=== PATIENT | male | born 1940 | race Caucasian/White ===

== ENCOUNTER 2017-08-27 07:00 | Day surgery (SDC) | payer OTHER, SELFPAY ==
[2017-08-27] VITALS (8 sets, daily range): BP systolic 102–131; BP diastolic 66–74; PULSE 41–54; RESP 12–16; TEMP 35.8–36.3; O2SAT 92–99; BMI 24.5
--- NOTE | 2017-08-27 | PATH_ITS ---
[facility] Accession Number: [id number] . 01 Material submitted: . PREPYLORIC . 01 Clinical history: . LESION . 02 Diagnosis: Stomach, Prepyloric, Biopsy: Gastric antral mucosa with reactive gastropathy. No evidence of Helicobacter organisms on H/E stain. Negative for intestinal metaplasia, dysplasia or malignancy. [facility]/08/30/2017 . 02 Electronically signed: . Clyde Abad MD, PhD, Pathologist NPI- [id number] . 01 Gross description: . One specimen is received in formalin, labeled [place]hertz, Santi and prepyloric lesion biopsies, and consists of multiple cheng tissue fragments, 0.1-0.2 cm and 1.0 x 0.5 x 0.1 cm in aggregate. The specimen is submitted in toto in cassette A1. (DARREN:[id number]) /FRR . 02 Pathologist provided ICD-10: R10.13 . 02 CPT . 924137 Performed at: 01 [facility] [address] [facility], [place], [place] [id number] MD Sylvester Flores MD Phone: [phone] Performed at: 02 [facility] [address] [place], [place] [id number] MD Willy Azar MD Phone: [phone]
[2017-08-27] MEDS: SODIUM CHLORIDE 0.9% 1,000 ML 200 ML IV (07:30)
--- NOTE | 2017-08-27 07:57 | PM.HP.1 ---
History of Present Illness Date Patient Seen: 08/27/17 Time Patient Seen: 07:57 Chief complaint: [address]133 EGD W/PROBABLE SCHATZKI RING FOR DILATATION Narrative: Patient is a gentleman with a known Schatzki ring. He has complete does move it till it he of his esophagus and had a neuro problems swallowing with myasthenia gravis. I am and doing an endoscopy on him today to see if there is any fixable problem that might improve his swallowing is he is having dysphagia of solids. Patient History Medical History Benign prostatic hyperplasia (Chronic) Chronic back pain (Chronic) Essential hypertension (Chronic) Hypothyroidism (acquired) (Chronic) Surgical History History of bilateral inguinal hernia repair (Resolved) Family & Social History Social History: household members spouse Meds Allergies Allergy/AdvReac Type Severity Reaction Status Date / Time CARROTS Allergy Unknown ITCHY EYES Uncoded 06/02/17 12:30 MONOSODIUM GLUTAMATE Allergy Unknown HEADACHES Uncoded 06/02/17 12:30 Review of Systems Review of Systems All systems reviewed & are unremarkable except as noted in HPI and below Gastrointestinal Comments: Dysphagia of solids Exam Vital Signs (past 8 hours): - 08/27/17 07:21 Temperature 96.5 F L Pulse Rate 45 L Respiratory Rate 16 Blood Pressure 131/70 H Pulse Oximetry 99 Oxygen Delivery Method Room Air Narrative Exam Narrative: No apparent distress. Lungs are clear to auscultation no rales or rhonchi. heart regular rate and rhythm no murmur gallop. abdomen is soft nontender without masses. patient is alert and oriented x3 Assessment & Plan (1) Dysphagia: Current visit: Yes Status: Chronic (2) Schatzki's ring of distal esophagus: Current visit: Yes Status: Chronic Plan: Assessment/Plan Narrative: EGD. I have discussed the procedure and rationale with him. Hope is we in find something fixable. Risks of bleeding and perforation were discussed. The possibility of dilatation discussed.
--- NOTE | 2017-08-27 08:11 | PM.PREOP ---
Pre-operative Note Interval Note Pre-op Check: History & Physical exam performed today ASA Class (for procedural sedation): II
--- NOTE | 2017-08-27 08:21 | SUR.OPER ---
to endo from opd via cart respirations unlabored iv patent positioned per self for procedure
[2017-08-27] MEDS: LIDOCAINE 4% SOLN 50 ML 20 ML TOP (08:42)
[2017-08-27] MEDS: TETRACAINE/BENZOCAINE/BUTAMBEN (CETACAINE) BOTTLE 1 SPRAY TOP (08:43)
--- NOTE | 2017-08-27 08:48 | PM.OP.ENDO ---
Operative Date/Time/Diagnoses Date of procedure: 08/27/17 Time of procedure: 08:48 Post-op diagnosis: same (Ulcerative submucosal nodules of the antrum. Possible healed ulcerations of the duodenum.) Procedure & Clinicians Same procedure as scheduled: Yes Indications: Dysphagia with an abnormal upper GI Surgeon: Juventino Romeo Procedure Notes SCOAP/Timeout: Performed Procedure in detail: The patient had topical anesthetic applied to oropharynx. She was placed in left lateral decubitus position and underwent IV sedation directed by the surgeon consisting of fentanyl and Versed. A bite block was inserted and the scope was advanced through it into the esophagus. The esophagus was unremarkable. GE junction was noted at 41 cm from the incisors. I could see no evidence of narrowing in that area. I also could not see evidence of a Schatzki ring suggested by his upper GI. The stomach insufflated well. There were at least 2 raised nodules in the antrum the surface of which was mildly ulcerated. There was some evidence proximally of a small hiatal hernia and of gastric fundic polyps.. The pyloric channel was widely patent. The duodenal bulb had evidence that suggested recent healed prior ulcerations as the mucosa was somewhat granular like granulation tissue. Otherwise the duodenum was unremarkable to the 4th part. The scope was brought back into the stomach and retroflexed. The proximal stomach[was as described above]. Multiple biopsies were taken in an attempt to do deep biopsies of the raised lesions in the antrum. The scope was then brought out through the esophagus again. No lesions were seen. The scope was removed and the patient tolerated the procedure well. Scope withdrawal time: Not applicable Sedation minutes: 14 Findings: gastric ulcer (Over raised nodules) and other findings (Possible recently healed duodenal ulcers) Specimen(s): other (Gastric lesions biopsied) Complications: none Plan for aftercare: Await pathology. Plan will be determined by that. Follow up: as needed Disposition: PACU
[2017-08-27] MEDS: fentaNYL 250 MCG/5 ML INJ 100 MCG IV (08:52)
[2017-08-27] MEDS: MIDAZOLAM 5 MG/5 ML VIAL 1 MG IV (08:52)
--- NOTE | 2017-08-27 08:53 | SUR.OPER ---
tolerate procedure well
== END 2017-08-27 09:40 | disposition home or self-care (01) ==
PROVIDERS: Family Provider Physical Medicine & Rehabilitation; PCP Physical Medicine & Rehabilitation; Visit Provider Specialist
PROC: 0DJ08ZZ Inspection of Upper Intestinal Tract, Via Natural or Artificial Opening Endoscopic (ICD-10-PCS; CPT 43235; principal; 2017-08-27 07:45)
DX: R13.10 Dysphagia, unspecified (principal); K22.2 Esophageal obstruction; I10 Essential (primary) hypertension; E03.9 Hypothyroidism, unspecified; K25.9 Gastric ulcer, unspecified as acute or chronic, without hemorrhage or perforation
CPT/HCPCS: 43239; 99152; J2250; J3010

== ENCOUNTER → 2017-11-09 13:53 | Outpatient (CLI) | payer OTHER, SELFPAY ==
--- NOTE | 2017-11-09 | DI.RAD.S_ITS ---
This blank DEXA report has been sent in error by the PACS system. The correct and complete report will be forthcoming in 1-2 days. Thank you for your patience and understanding. Dictated by: Raquel Odell MD, PhD on 11/09/2017 at 15:14 Approved by: Raquel Odell MD, PhD on 11/09/2017 at 15:14
== END ==
PROVIDERS: Family Provider Physical Medicine & Rehabilitation; PCP Physical Medicine & Rehabilitation; Visit Provider Internal Medicine
DX: M85.852 Other specified disorders of bone density and structure, left thigh (principal); M48.061 Spinal stenosis, lumbar region without neurogenic claudication; Z82.62 Family history of osteoporosis; M15.0 Primary generalized (osteo)arthritis
CPT/HCPCS: 77080

== ENCOUNTER 2018-03-05 19:38 | Emergency (ER) | payer OTHER, SELFPAY ==
[2018-03-05 19:45] VITALS: BP 124/78; PULSE 76; RESP 16; O2SAT 98
[2018-03-05 19:56] VITALS: TEMP 36.4
--- NOTE | 2018-03-05 20:26 | ED.ABDPAIN ---
HPI - Abdominal Pain <TAMAR Hernandez - Last Filed: 03/05/18 22:09> General Chief Complaint: Abdominal Pain Stated Complaint: states sharp pain left side abdominal area Time Seen by Provider: 03/05/18 20:10 Source: patient Mode of arrival: ambulatory Limitations: no limitations History of Present Illness HPI narrative: 77-year-old male history of hypertension is a nonsmoker here for complaint of left lower quadrant pain that started yesterday. He denies any trauma to the area. He states that his last bowel movement was a couple of days ago and was firm and hard. He denies any fevers or chills. Positive p.o. intake today with no vomiting although he has had decreased appetite. He denies any urinary symptoms. Pain is limited to left lower quadrant area. He denies any stressors or relievers of his discomfort Related Data Previous Rx's Medication Instructions Recorded ciprofloxacin HCl 500 mg PO BID #14 tab 03/05/18 hydrocodone-acetaminophen [[place]] 1 tab PO Q6H PRN #10 tab 03/05/18 metronidazole 500 mg PO TID #21 tab 03/05/18 Allergies Allergy/AdvReac Type Severity Reaction Status Date / Time CARROTS Allergy Unknown ITCHY EYES Uncoded 06/02/17 12:30 MONOSODIUM GLUTAMATE Allergy Unknown HEADACHES Uncoded 06/02/17 12:30 Review of Systems <TAMAR Hernandez - Last Filed: 03/05/18 22:09> Constitutional Denies chills, Denies fever(s), Denies lethargy and Denies weakness Eyes Denies change in vision, Denies eye discharge, Denies irritation and Denies loss of vision ENT Ears, Nose, Mouth, and Throat: Denies change in voice, Denies neck pain and Denies sore throat Cardiovascular Denies chest pain, Denies irregular heart rhythm, Denies lightheadedness, Denies palpitations, Denies dyspnea, Denies dyspnea on exertion and Denies orthopnea Respiratory Denies cough, Denies dyspnea, Denies dyspnea on exertion and Denies wheezing Gastrointestinal Comments: Left lower quadrant tenderness Genitourinary Denies hematuria, Denies flank pain, Denies urinary incontinence and Denies urinary urgency Musculoskeletal Denies neck pain Neurologic Denies loss of vision and Denies weakness Endocrine Denies palpitations Allergic/Immunologic Denies wheezing Exam <TAMAR Hernandez - Last Filed: 03/05/18 22:09> Initial Vital Signs Initial Vital Signs: Vital Signs Pulse Rate 76 03/05/18 19:45 Respiratory Rate 16 03/05/18 19:45 Blood Pressure 124/78 03/05/18 19:45 Pulse Oximetry 98 03/05/18 19:45 Const General: cooperative and well developed Nutritional Appearance: well nourished Orientation: alert, awake, oriented x3 and not confused [facility] Mouth: oral mucosae normal and moist mucous membranes Eyes General: appearance normal, both eyes and all related structures Eyelids: eyelids normal Conjunctivae: conjunctivae normal Sclera: sclerae normal Pupils: PERRL EOM: EOM intact bilaterally Resp Effort & Inspection: normal respiratory effort, able to speak in complete sentences, no respiratory distress and no use of accessory muscles Auscultation: clear to auscultation bilaterally, no rales, no rhonchi and no wheezes Cardio Rate: regular rate Rhythm: regular rhythm Heart Sounds: no click, no gallops, no murmurs and no rubs Pulses: normal peripheral pulses GI Inspection: non-distended Palpation: soft, no hepatosplenomegaly, No guarding, No pulsatile mass and tender Auscultation: normal bowel sounds Other: Tenderness on palpation the left lower quadrant General: No CVA tenderness Skin General: no rashes or lesions noted, No jaundice and No petechiae Neuro General: alert, oriented x3, gait normal and no focal motor deficits Speech: speech normal <Manish Caballero DO - Last Filed: 03/06/18 06:02> Initial Vital Signs Initial Vital Signs: Vital Signs Pulse Rate 76 03/05/18 19:45 Respiratory Rate 16 03/05/18 19:45 Blood Pressure 124/78 03/05/18 19:45 Pulse Oximetry 98 03/05/18 19:45 Course <TAMAR Hernandez - Last Filed: 03/05/18 22:09> Orders Ordered: Discontinued Medications Ciprofloxacin (Cipro) 500 mg PO NOW ONE Stop: 03/05/18 22:00 Last Admin: 03/05/18 22:26 Dose: Sodium Chloride (Normal Saline 0.9%) 1,000 mls @ 1,000 mls/hr IV BOLUS ONE Stop: 03/05/18 21:28 Last Infusion: 03/05/18 22:00 Dose: 0 mls/hr Admin: 03/05/18 20:42 Dose: 1,000 mls/hr Levofloxacin (Levaquin) 750 mg PO NOW ONE Stop: 03/05/18 22:14 Last Admin: 03/05/18 22:24 Dose: 750 mg Metronidazole (Metronidazole) 500 mg PO NOW ONE Stop: 03/05/18 22:00 Last Admin: 03/05/18 22:24 Dose: 500 mg Vital Signs - 8 hr 03/05/18 22:45 Pulse Rate 61 Respiratory Rate 15 Blood Pressure 124/89 Pulse Oximetry 97 <Manish Caballero DO - Last Filed: 03/06/18 06:02> Orders Ordered: Discontinued Medications Ciprofloxacin (Cipro) 500 mg PO NOW ONE Stop: 03/05/18 22:00 Last Admin: 03/05/18 22:26 Dose: Sodium Chloride (Normal Saline 0.9%) 1,000 mls @ 1,000 mls/hr IV BOLUS ONE Stop: 03/05/18 21:28 Last Infusion: 03/05/18 22:00 Dose: 0 mls/hr Admin: 03/05/18 20:42 Dose: 1,000 mls/hr Levofloxacin (Levaquin) 750 mg PO NOW ONE Stop: 03/05/18 22:14 Last Admin: 03/05/18 22:24 Dose: 750 mg Metronidazole (Metronidazole) 500 mg PO NOW ONE Stop: 03/05/18 22:00 Last Admin: 03/05/18 22:24 Dose: 500 mg Vital Signs - 8 hr 03/05/18 22:45 Pulse Rate 61 Respiratory Rate 15 Blood Pressure 124/89 Pulse Oximetry 97 MDM - Abdominal Pain <TAMAR Hernandez - Last Filed: 03/05/18 22:09> Lab Data Result diagrams: 03/05/18 20:50 03/05/18 20:50 Lab Results 03/05/18 03/05/18 Range/Units 20:50 20:50 WBC 9.6 (4.5-11.0) X10^3/uL RBC 4.27 L (4.5-5.9) X10^6/uL Hgb 13.6 (13.5-17.5) g/dL Hct 40.3 L (41-53) % MCV 94.3 (80-100) fL MCH 31.8 (26-34) PG MCHC 33.7 (30-36) % RDW 13.5 (11.6-14.8) % Plt Count 162 (150-400) X10^3/uL Neut % (Auto) 76.6 H (50-75) % Lymph % (Auto) 9.4 L (25-40) % [place] % (Auto) 11.8 (3-14) % Eos % (Auto) 1.7 L (2-4) % Baso % (Auto) 0.5 (0-2) % Neut # (Auto) 7400 H (9828-0248) /uL Lymph # (Auto) 900 L (7781-2647) /uL [place] # (Auto) 1100 H (0-900) /uL Eos # (Auto) 200 (0-450) /uL Baso # (Auto) 0 (0-100) /uL Sodium 139 (137-145) mmol/L Potassium 4.4 (3.4-5.1) mmol/L Chloride 107 (98-107) mmol/L Carbon Dioxide 25 (22-32) mmol/L BUN 24 H (9-20) mg/dL Creatinine 0.90 (0.66-1.25) mg/dL Estimated GFR > 60.0 (>60) mL/min BUN/Creatinine Ratio 26.7 H (6-22) Glucose 94 (80-110) mg/dL Calcium 9.6 (8.4-10.2) mg/dL Total Bilirubin 0.6 (0.2-1.3) mg/dL AST 22 (17-59) IU/L ALT 26 (21-72) IU/L Alkaline Phosphatase 56 (38-126) U/L Total Protein 6.5 (6.3-8.2) g/dL Albumin 3.9 (3.5-5.0) g/dL Globulin 2.6 (1.7-4.1) g/dL Albumin/Globulin Ratio 1.5 (1.0-2.8) Lipase 59 (23-300) U/L Point of care testing: Urine Dip Bedside Urine Glucose Negative Bedside Urine Bilirubin - Negative Bedside Urine Ketone - Negative Urine Specific Crystal 1.030 Bedside Urine Occult Blood - Negative Bedside Urine pH 5.5 Bedside Urine Protein +/- 15 Bedside Urine Urobilinogen - Negative Bedside Urine Nitrite - Negative Bedside Urine Leukocytes - Negative Esterase Imaging Data CT scan - abdomen: Radiologist's impression: [address] [address] [address] Scan Report Signed Patient: Santi Nguyen MR#: [id number] : 1940 Acct:[id number] Age/Sex: 77 / M Date of Service: 03/05/18 Loc: ED Accession Number: [id number] Procedure: CT abdomen pelvis w con Ordering Provider: Modesto Huynh PROCEDURE: CT ABDOMEN PELVIS W CON INDICATIONS: Left lower quadrant pain TECHNIQUE: After the administration of intravenous contrast, 5 mm thick sections acquired from the diaphragm to the symphysis. 5 mm coronal and sagittal reformats were acquired. For radiation dose reduction, the following was used: automated exposure control, adjustment of mA and/or kV according to patient size. COMPARISON: None. FINDINGS: Image quality: Excellent. ABDOMEN: Lung bases: Lung bases are clear. Heart size is normal. Solid organs: Liver is normal in size and enhancement. Gallbladder is within normal limits. Biliary system is non dilated. Pancreas enhances normally. Spleen is normal in size and enhancement. No adrenal nodules. Kidneys demonstrate normal size and enhancement, without hydronephrosis. Bilateral renal cysts. Small bilateral nonobstructing renal stones. Peritoneum and bowel: Small hiatal hernia is noted. Bowel loops demonstrate normal wall thickness and caliber. Diffuse scattered diverticuli are noted in the colon. Mild inflammatory changes are noted adjacent to the distal left colon and region of small diverticuli compatible with diverticulitis. No peridiverticular abscess.. No free fluid or air. Nodes and vessels: No retroperitoneal or mesenteric adenopathy by size criteria. Aorta and inferior vena cava are normal in size. Miscellaneous: No ventral hernias. PELVIS: Genitourinary: Bladder wall thickness is normal. Miscellaneous: No inguinal hernias or adenopathy. Neurostimulator noted in the right buttock subcutaneous fat with lead projecting in the sacrum. Bones: No suspicious bony lesions. No vertebral body compression fractures. Spine degenerative disease and facet arthropathy noted. IMPRESSION: 1. Distal left colon diverticulitis. 2. No abscess. 3. Small bilateral nonobstructing renal stones. 4. Small hiatal hernia. Dictated by: Raquel Odell MD, PhD on 03/05/2018 at 21:48 Approved by: Raquel Odell MD, PhD on 03/05/2018 at 21:53 [facility] Narrative Medical decision making narrative: CBC and Chem panel were obtained were unremarkable. Lipase was negative. Urinalysis was negative for urinary tract infection. CT of the abdomen shows signs consistent with diverticulitis to the descending colon area. No free air. No signs of abscess or perforation. Vital signs are stable. He is placed on ciprofloxacin and metronidazole. He is instructed to slowly advance diet as tolerated. [id number] Tylenol or Motrin as needed for any discomfort. Small amount of [place] is prescribed for breakthrough pain. Follow up with primary care provider the next few days for re-evaluation. For any worsening symptoms return emergency room. <Manish Caballero, - Last Filed: 03/06/18 06:02> Lab Data Lab Results 03/05/18 03/05/18 Range/Units 20:50 20:50 WBC 9.6 (4.5-11.0) X10^3/uL RBC 4.27 L (4.5-5.9) X10^6/uL Hgb 13.6 (13.5-17.5) g/dL Hct 40.3 L (41-53) % MCV 94.3 (80-100) fL MCH 31.8 (26-34) PG MCHC 33.7 (30-36) % RDW 13.5 (11.6-14.8) % Plt Count 162 (150-400) X10^3/uL Neut % (Auto) 76.6 H (50-75) % Lymph % (Auto) 9.4 L (25-40) % [place] % (Auto) 11.8 (3-14) % Eos % (Auto) 1.7 L (2-4) % Baso % (Auto) 0.5 (0-2) % Neut # (Auto) 7400 H (5639-4294) /uL Lymph # (Auto) 900 L (6072-1817) /uL [place] # (Auto) 1100 H (0-900) /uL Eos # (Auto) 200 (0-450) /uL Baso # (Auto) 0 (0-100) /uL Sodium 139 (137-145) mmol/L Potassium 4.4 (3.4-5.1) mmol/L Chloride 107 (98-107) mmol/L Carbon Dioxide 25 (22-32) mmol/L BUN 24 H (9-20) mg/dL Creatinine 0.90 (0.66-1.25) mg/dL Estimated GFR > 60.0 (>60) mL/min BUN/Creatinine Ratio 26.7 H (6-22) Glucose 94 (80-110) mg/dL Calcium 9.6 (8.4-10.2) mg/dL Total Bilirubin 0.6 (0.2-1.3) mg/dL AST 22 (17-59) IU/L ALT 26 (21-72) IU/L Alkaline Phosphatase 56 (38-126) U/L Total Protein 6.5 (6.3-8.2) g/dL Albumin 3.9 (3.5-5.0) g/dL Globulin 2.6 (1.7-4.1) g/dL Albumin/Globulin Ratio 1.5 (1.0-2.8) Lipase 59 (23-300) U/L Point of care testing: Urine Dip Bedside Urine Glucose Negative Bedside Urine Bilirubin - Negative Bedside Urine Ketone - Negative Urine Specific Crystal 1.030 Bedside Urine Occult Blood - Negative Bedside Urine pH 5.5 Bedside Urine Protein +/- 15 Bedside Urine Urobilinogen - Negative Bedside Urine Nitrite - Negative Bedside Urine Leukocytes - Negative Esterase Discharge Plan Departure Patient Disposition: Home Clinical Impression: Diverticulitis Discharge Date/Time: 03/05/18 22:45 Interventions: ED Discharge Assessment Last Done: 03/05/18 22:45 Instructions: Diverticulitis Activity Restrictions/Additional Instructions: Laboratory results today were unremarkable. CT of the abdomen shows diverticulitis to the descending colon. You are placed on antibiotics called ciprofloxacin and Metro that is all use as directed 1st dose was given here in the emergency room. Fill prescriptions given tomorrow morning and take as directed. Slowly advance diet as tolerated. Use [id number] Tylenol or Motrin as needed for any discomfort. Small amount of [place] is provided for breakthrough pain not covered by the Tylenol or Motrin. Follow up with her primary care provider in the next couple days for re-evaluation. For any worsening symptoms return to the emergency room. Prescriptions: New metronidazole 500 mg tablet 500 mg PO TID Qty: 21 RF: 0 ciprofloxacin HCl 500 mg tablet 500 mg PO BID Qty: 14 RF: 0 hydrocodone-acetaminophen [[place]] 5-325 mg tablet 1 tab PO Q6H PRN (Reason: pain) Qty: 10 RF: 0 Referrals: Kendra Jaramillo MD [Primary Care Provider] - <Manish Caballero DO - Last Filed: 03/06/18 06:02> Cosign ED Attending Lucita Attestation: I was immediately available in the department for consultation. Documentation has been reviewed. I agree with assessment and plan.
--- NOTE | 2018-03-05 20:29 | DI.CT.S_ITS ---
PROCEDURE: CT ABDOMEN PELVIS W CON INDICATIONS: Left lower quadrant pain TECHNIQUE: After the administration of intravenous contrast, 5 mm thick sections acquired from the diaphragm to the symphysis. 5 mm coronal and sagittal reformats were acquired. For radiation dose reduction, the following was used: automated exposure control, adjustment of mA and/or kV according to patient size. COMPARISON: None. FINDINGS: Image quality: Excellent. ABDOMEN: Lung bases: Lung bases are clear. Heart size is normal. Solid organs: Liver is normal in size and enhancement. Gallbladder is within normal limits. Biliary system is non dilated. Pancreas enhances normally. Spleen is normal in size and enhancement. No adrenal nodules. Kidneys demonstrate normal size and enhancement, without hydronephrosis. Bilateral renal cysts. Small bilateral nonobstructing renal stones. Peritoneum and bowel: Small hiatal hernia is noted. Bowel loops demonstrate normal wall thickness and caliber. Diffuse scattered diverticuli are noted in the colon. Mild inflammatory changes are noted adjacent to the distal left colon and region of small diverticuli compatible with diverticulitis. No peridiverticular abscess.. No free fluid or air. Nodes and vessels: No retroperitoneal or mesenteric adenopathy by size criteria. Aorta and inferior vena cava are normal in size. Miscellaneous: No ventral hernias. PELVIS: Genitourinary: Bladder wall thickness is normal. Miscellaneous: No inguinal hernias or adenopathy. Neurostimulator noted in the right buttock subcutaneous fat with lead projecting in the sacrum. Bones: No suspicious bony lesions. No vertebral body compression fractures. Spine degenerative disease and facet arthropathy noted. IMPRESSION: 1. Distal left colon diverticulitis. 2. No abscess. 3. Small bilateral nonobstructing renal stones. 4. Small hiatal hernia. Dictated by: Raquel Odell MD, PhD on 03/05/2018 at 21:48 Approved by: Raquel Odell MD, PhD on 03/05/2018 at 21:53
[2018-03-05] MEDS: SODIUM CHLORIDE 0.9% 1,000 ML 1000 ML IV (20:42)
[2018-03-05 20:57] LABS: Add Manual Diff / Slide Review NO; Basophils Absolute Auto 0 /uL (0-100); Basophils Percent Auto 0.5 % (0-2); Eosinophils Absolute Auto 200 /uL (0-450); Eosinophils Percent Auto 1.7 % (2-4); Hematocrit 40.3 % (41-53); Hemoglobin 13.6 g/dL (13.5-17.5); Lymphocytes Absolute Auto 900 /uL (1100-4500); Lymphocytes Percent Auto 9.4 % (25-40); Mean Corpuscular HGB Conc 33.7 % (30-36); Mean Corpuscular Hemoglobin 31.8 PG (26-34); Mean Corpuscular Volume 94.3 fL (80-100); Monocytes Absolute Auto 1100 /uL (0-900); Monocytes Percent Auto 11.8 % (3-14); Neutrophils Absolute Auto 7400 /uL (1500-7000); Neutrophils Percent Auto 76.6 % (50-75); Platelet Count 162 X10^3/uL (150-400); Red Blood Cell Count 4.27 X10^6/uL (4.5-5.9); Red Cell Distribution Width 13.5 % (11.6-14.8); White Blood Cell Count 9.6 X10^3/uL (4.5-11.0)
[2018-03-05 21:09] LABS: Alanine Aminotransferase 26 IU/L (21-72); Albumin 3.9 g/dL (3.5-5.0); Albumin Globulin Ratio 1.5 (1.0-2.8); Alkaline Phosphatase 56 U/L (38-126); Aspartate Aminotransferase 22 IU/L (17-59); BUN Creatinine Ratio 26.7 (6-22); Bilirubin Total 0.6 mg/dL (0.2-1.3); Blood Urea Nitrogen 24 mg/dL (9-20); Calcium 9.6 mg/dL (8.4-10.2); Carbon Dioxide 25 mmol/L (22-32); Chloride 107 mmol/L (98-107); Estimated Glomerular Filt Rate > 60.0 mL/min (>60); Globulin 2.6 g/dL (1.7-4.1); Glucose 94 mg/dL (80-110); HEMOLYSIS < 15 (0-50); Lipase 59 U/L (23-300); Potassium 4.4 mmol/L (3.4-5.1); Sodium 139 mmol/L (137-145); Total Protein 6.5 g/dL (6.3-8.2)
[2018-03-05] MEDS: metroNIDAZOLE 250 MG TABLET 500 MG PO (22:24)
[2018-03-05] MEDS: levoFLOXacin 250 MG TABLET 750 MG PO (22:24)
[2018-03-05 22:45] VITALS: BP 124/89; PULSE 61; RESP 15; O2SAT 97
== END 2018-03-05 22:45 | disposition home or self-care (01) ==
PROVIDERS: Emergency Provider Nurse Practitioner Family; Family Provider Physical Medicine & Rehabilitation; PCP Physical Medicine & Rehabilitation
DX: K57.92 Diverticulitis of intestine, part unspecified, without perforation or abscess without bleeding (principal)
CPT/HCPCS: 36591; 74177; 80053; 81003; 83690; 85025; 96360; 99283; 99284; Q9967

== ENCOUNTER → 2018-04-14 11:47 | Outpatient (CLI) | payer OTHER, SELFPAY ==
[2018-04-14 13:07] LABS: Blood Urea Nitrogen 20 mg/dL (9-20); Calcium 9.6 mg/dL (8.4-10.2); Carbon Dioxide 27 mmol/L (22-32); Chloride 102 mmol/L (98-107); Estimated Glomerular Filt Rate > 60.0 mL/min (>60); Glucose 67 mg/dL (80-110); HEMOLYSIS < 15 (0-50); Potassium 4.5 mmol/L (3.4-5.1); Sodium 136 mmol/L (137-145)
[2018-04-14 13:25] LABS: Free T3, Triiodothyronine Free 2.98 pg/mL (2.77-5.27); Free T4, Direct Thyroxine 1.32 ng/dL (0.78-2.19)
[2018-04-14 13:52] LABS: Thyroid Stimulating Hormone 2.34 uIU/mL (0.47-4.68)
[2018-04-14 14:02] LABS: Prostate Specific Antigen Scrn 0.228 ng/mL (0.1-4.0)
== END ==
PROVIDERS: PCP Internal Medicine; Visit Provider Internal Medicine
DX: I10 Essential (primary) hypertension (principal); E03.9 Hypothyroidism, unspecified
CPT/HCPCS: 36415; 80048; 84439; 84443; 84481; G0103

== ENCOUNTER → 2019-03-10 10:36 | Outpatient (CLI) | payer OTHER, SELFPAY ==
--- NOTE | 2019-03-10 | DI.RAD.S_ITS ---
PROCEDURE: FL BARIUM SWALLOW INDICATIONS: Dysphagia, unspecified COMPARISON: None. FINDINGS: Function: There is normal esophageal peristalsis. Gastroesophageal reflux was noted which occurred without provocative maneuvers. Reflux extended to the level of the thoracic inlet. There is normal transit of a calibrated barium tablet through the esophagus into the stomach. Morphology: Air-contrast images demonstrate normal mucosal morphology. Single contrast views show no esophageal strictures, extrinsic mass effects, or diverticula. No tertiary contraction waves identified in the current study. Small hiatal hernia. Prominent Schatzki's ring noted. Limited images of the stomach demonstrate normal appearance. IMPRESSION: 1. Gastroesophageal reflux. 2. Prominent Schatzki's ring. 3. Small hiatal hernia. Dictated by: Raquel Odell MD, PhD on 03/10/2019 at 11:32 Approved by: Raquel Odell MD, PhD on 03/10/2019 at 11:35
== END ==
PROVIDERS: PCP Internal Medicine; Visit Provider Internal Medicine
DX: R13.10 Dysphagia, unspecified (principal); K22.2 Esophageal obstruction; K21.9 Gastro-esophageal reflux disease without esophagitis; K44.9 Diaphragmatic hernia without obstruction or gangrene
CPT/HCPCS: 74220

== ENCOUNTER 2019-07-01 03:22 | Emergency (ER) | payer OTHER, SELFPAY ==
--- NOTE | 2019-07-01 03:23 | ED_ITS ---
HPI - Headache General Chief Complaint: Headache Stated Complaint: migraine Time Seen by Provider: 07/01/19 03:23 Source: patient Mode of arrival: Ambulatory Limitations: no limitations History of Present Illness HPI Narrative: 79-year-old male nonsmoker with history of migraines presents with a chief complaint of a worsening headache over the past 6 hours or so. He states that it started off like his typical migraines but has continued to worsen and has not responded to is typical migraine therapies. He denies the use of blood thinners and has had no recent injuries, falls or bumps to the head. He denies any neck pain or neurologic symptoms such as blurred vision, trouble with speech or numbness, tingling or weakness. He states his pain is worsened with bright lights and loud noise and improves with darkness and quiet. He denies runny nose or sore throat nor any exposure to persons known to have COVID-19 MD Complaint: headache and migraine Onset (ago): hour(s) Onset description: gradual Location: diffuse Severity: moderate Quality: aching and throbbing Relieving factors: dark room Context: occurred at rest Treatments prior to arrival: migraine medication Related Data Previous Rx's Medication Instructions Recorded ciprofloxacin HCl 500 mg PO BID #14 tab 03/05/18 hydrocodone-acetaminophen [[place]] 1 tab PO Q6H PRN #10 tab 03/05/18 metronidazole 500 mg PO TID #21 tab 03/05/18 Allergies Allergy/AdvReac Type Severity Reaction Status Date / Time CARROTS Allergy Unknown ITCHY EYES Uncoded 06/02/17 12:30 MONOSODIUM GLUTAMATE Allergy Unknown HEADACHES Uncoded 06/02/17 12:30 Review of Systems Constitutional Constitutional: Denies chills, Denies fatigue, Denies fever(s), Denies frequent falls, Reports headache(s), Denies lethargy and Denies weakness Eyes Eyes: Denies change in vision, Denies eye discharge, Denies irritation and Denies loss of vision ENT Ears, Nose, Mouth, and Throat: Denies change in voice, Denies dizziness, Reports headache(s), Denies neck pain, Denies sore throat and Denies throat swelling Cardiovascular Cardiovascular: Denies chest pain, Denies irregular heart rhythm, Denies lightheadedness, Denies palpitations, Denies dyspnea, Denies dyspnea on exertion and Denies orthopnea Respiratory Respiratory: Denies cough, Denies dyspnea, Denies dyspnea on exertion and Denies wheezing Gastrointestinal Gastrointestinal: Denies abdominal pain, Denies change in bowel habits, Denies diarrhea, Denies nausea and Denies vomiting Genitourinary Genitourinary: Denies hematuria, Denies flank pain, Denies urinary incontinence and Denies urinary urgency Musculoskeletal Musculoskeletal: Denies back pain, Denies muscle weakness, Denies neck pain, Denies numbness and Denies tingling Integumentary/Breasts Skin/Breast: Denies pruritus, Denies erythema, Denies rash and Denies wounds Neurologic Neurologic: Denies behavioral changes, Denies confusion, Denies dizziness, Denies frequent falls, Reports headache(s), Denies loss of vision, Denies numbness, Denies tingling and Denies weakness Psychiatric Psychiatric: Denies anxiety, Denies behavioral changes, Denies confusion, Denies depression, Denies homicidal ideation and Denies suicidal ideation Endocrine Endocrine: Denies fatigue, Denies flushing and Denies palpitations Hematologic/Lymphatic Hematologic/Lymphatic: Denies easy bruising Allergic/Immunologic Allergic/Immunologic: Denies urticaria, Denies throat swelling and Denies wheezing Patient History Medical History Benign prostatic hyperplasia (Chronic) Chronic back pain (Chronic) Essential hypertension (Chronic) Hypothyroidism (acquired) (Chronic) Surgical History History of bilateral inguinal hernia repair (Resolved) Social History household members: spouse Smoking Status: Never smoker Smoking Status: Never smoker alcohol intake frequency: other Substance Use Type: does not use Exam Narrative Exam Narrative: GENERAL: [79] year old patient appears stated age. Well- nourished, well-developed patient, in moderate distress, GCS 15 HEAD: Atraumatic. Normocephalic. EYES: Pupils equal round and reactive. Extraocular motions intact. No scleral icterus. No injection or drainage. ENT: Nose without bleeding, purulent drainage. Throat without erythema, tonsillar hypertrophy or exudate. Airway patent. NECK: Trachea midline. Non tender CARDIOVASCULAR: Regular rate and rhythm without murmurs, gallops, or rubs. RESPIRATORY: Clear to auscultation. Breath sounds equal bilaterally. No wheezes, rales, or rhonchi. GASTROINTESTINAL: Abdomen soft, non-tender, nondistended. EXTREMITIES: No edema or joint tenderness. BACK: Nontender without deformity or crepitance. No flank tenderness. NEURO: AOx3. SKIN: No rash or erythema of visible areas NIH Stroke Scale 1a. LOC: Patient is alert and keenly responsive (0) 1b. LOC Questions: Patient answers both LOC questions accurately (0) 1c. LOC Commands: Patient performs both tasks correctly (0) 2. Best Gaze: Normal (0) 3. Visual: No visual loss (0) 4. Facial palsy: Normal symmetrical movements (0) 5. Motor arm: No drift (0) 6. Motor leg: No drift (0) 7. Limb ataxia: Absent (0) 8. Sensory: Normal (0) 9. Best language: No aphasia; normal (0) 10. Dysarthria: Normal (0) 11. Extinction and inattention: No abnormality (0) NIHSS: 0 Initial Vital Signs Initial Vital Signs: Vital Signs Temperature 97.6 F 07/01/19 03:25 Pulse Rate 51 L 07/01/19 03:25 Respiratory Rate 20 07/01/19 03:25 Blood Pressure 157/72 H 07/01/19 03:25 Pulse Oximetry 98 07/01/19 03:25 Course Orders Ordered: ED Orders 07/01/19 03:30 CT head/brain wo con Stat Basic Metabolic Panel Stat Complete Blood Count AUTO DIFF Stat Discontinued Medications Sodium Chloride (Normal Saline 0.9%) 1,000 mls @ 1,000 mls/hr IV BOLUS ONE Stop: 07/01/19 04:28 Last Infusion: 07/01/19 04:36 Dose: 1,000 mls/hr Documented by: Admin: 07/01/19 03:40 Dose: 1,000 mls/hr Documented by: LATOYA Ketorolac Tromethamine (Toradol) 10 mg IV NOW ONE Stop: 07/01/19 03:30 Last Admin: 07/01/19 03:40 Dose: 10 mg Documented by: LATOYA Metoclopramide HCl (Reglan) 10 mg IV NOW ONE Stop: 07/01/19 03:30 Last Admin: 07/01/19 03:40 Dose: 10 mg Documented by: [email or web address] Reevaluation(s) Reevaluation #1: Patient feeling much better after the above-stated therapies and ready for discharge. He has been given extensive return precautions and had his questions answered to his apparent satisfaction Vital Signs Vital signs: Vital Signs - 8 hr 07/01/19 03:25 07/01/19 03:30 07/01/19 04:36 Temperature 97.6 F 97.6 F Pulse Rate 51 L 54 L 51 L Respiratory Rate 20 20 14 Blood Pressure 157/72 H Blood Pressure [Left Arm] 157/72 H 138/75 Pulse Oximetry 98 97 96 MDM - Headache Lab Data Result diagrams: 07/01/19 03:30 07/01/19 03:30 Labs: Lab Results 07/01/19 07/01/19 Range/Units 03:30 03:30 WBC 6.4 (4.5-11.0) X10^3/uL RBC 4.43 L (4.5-5.9) X10^6/uL Hgb 14.2 (13.5-17.5) g/dL Hct 41.5 (41-53) % MCV 93.8 (80-100) fL MCH 32.0 (26-34) PG MCHC 34.1 (30-36) % RDW 14.6 (11.6-14.8) % Plt Count 149 L (150-400) X10^3/uL Neut % (Auto) 59.9 (50-75) % Lymph % (Auto) 22.3 L (25-40) % [place] % (Auto) 12.7 (3-14) % Eos % (Auto) 4.1 H (2-4) % Baso % (Auto) 1.0 (0-2) % Neut # (Auto) 3800 (9857-2290) /uL Lymph # (Auto) 1400 (4538-3431) /uL [place] # (Auto) 800 (0-900) /uL Eos # (Auto) 300 (0-450) /uL Baso # (Auto) 100 (0-100) /uL Sodium 134 L (137-145) mmol/L Potassium 4.2 (3.4-5.1) mmol/L Chloride 105 (98-107) mmol/L Carbon Dioxide 27 (22-32) mmol/L BUN 21 H (9-20) mg/dL Creatinine 1.04 (0.66-1.25) mg/dL Estimated GFR > 60.0 (>60) mL/min BUN/Creatinine Ratio 20.2 (6-22) Glucose 92 (80-110) mg/dL Calcium 9.7 (8.4-10.2) mg/dL Imaging Data CT scan - head: Radiologist's Impression: mild 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 Let them know you were seen in the Emergency Department and that we ask that you be seen in follow up *Return to ER if you should have any new, worsening or concerning symptoms Prescriptions: No Action metronidazole 500 mg tablet 500 mg PO TID Qty: 21 RF: 0 ciprofloxacin HCl 500 mg tablet 500 mg PO BID Qty: 14 RF: 0 hydrocodone-acetaminophen [[place]] 5-325 mg tablet 1 tab PO Q6H PRN (Reason: pain) Qty: 10 RF: 0 Referrals: Boyd Talamantes MD [Primary Care Provider] -
[2019-07-01 03:25] VITALS: BP 157/72; PULSE 51; RESP 20; TEMP 36.4; O2SAT 98
[2019-07-01 03:30] VITALS: BP 157/72; PULSE 54; RESP 20; TEMP 36.4; O2SAT 97
--- NOTE | 2019-07-01 03:30 | DI.CT.S_ITS ---
PROCEDURE: CT HEAD/BRAIN WO CON INDICATIONS: worst headache TECHNIQUE: Noncontrast 4.5 mm thick angled axial sections acquired from the foramen magnum to the vertex, with coronal and sagittal reformats. For radiation dose reduction, the following was used: automated exposure control, adjustment of mA and/or kV according to patient size. COMPARISON: None. FINDINGS: Image quality: Excellent. CSF spaces: Basal cisterns are patent. No extra-axial fluid collections. The ventricles are symmetric in size and shape. Brain: No intracranial bleeds or masses. There is cerebral volume loss for age, with resultant ventricular and sulcal prominence. There are periventricular and deep white matter chronic small vessel ischemic changes. There is intracranial internal carotid artery atherosclerosis. Skull and face: Calvarium and visualized facial bones appear intact, without suspicious lesions. Sinuses: Visualized sinuses and mastoids are clear. IMPRESSION: Unremarkable intracranial study for age, without acute intracranial hemorrhage. No masses or mass effect can be seen. Note is made of age-appropriate brain parenchymal volume loss and chronic small vessel ischemic changes. Note: No significant discrepancy from the preliminary report. Dictated by: Bradley Morris M.D. on 07/01/2019 at 7:27 Approved by: Bradley Morris M.D. on 07/01/2019 at 7:28
[2019-07-01] MEDS: METOCLOPRAMIDE 10 MG/2 ML INJ IV (03:40)
[2019-07-01] MEDS: KETOROLAC 60 MG/2 ML VIAL 10 MG IV (03:40)
[2019-07-01] MEDS: SODIUM CHLORIDE 0.9% 1,000 ML 1000 ML IV (03:40)
[2019-07-01 03:46] LABS: Add Manual Diff / Slide Review NO; Basophils Absolute Auto 100 /uL (0-100); Eosinophils Absolute Auto 300 /uL (0-450); Eosinophils Percent Auto 4.1 % (2-4); Hematocrit 41.5 % (41-53); Hemoglobin 14.2 g/dL (13.5-17.5); Lymphocytes Absolute Auto 1400 /uL (1100-4500); Lymphocytes Percent Auto 22.3 % (25-40); Mean Corpuscular HGB Conc 34.1 % (30-36); Mean Corpuscular Volume 93.8 fL (80-100); Monocytes Absolute Auto 800 /uL (0-900); Monocytes Percent Auto 12.7 % (3-14); Neutrophils Absolute Auto 3800 /uL (1500-7000); Neutrophils Percent Auto 59.9 % (50-75); Platelet Count 149 X10^3/uL (150-400); Red Blood Cell Count 4.43 X10^6/uL (4.5-5.9); Red Cell Distribution Width 14.6 % (11.6-14.8); White Blood Cell Count 6.4 X10^3/uL (4.5-11.0)
[2019-07-01 03:51] LABS: BUN Creatinine Ratio 20.2 (6-22); Blood Urea Nitrogen 21 mg/dL (9-20); Calcium 9.7 mg/dL (8.4-10.2); Carbon Dioxide 27 mmol/L (22-32); Chloride 105 mmol/L (98-107); Estimated Glomerular Filt Rate > 60.0 mL/min (>60); Glucose 92 mg/dL (80-110); HEMOLYSIS 16 (0-50); Potassium 4.2 mmol/L (3.4-5.1); Sodium 134 mmol/L (137-145)
[2019-07-01 04:36] VITALS: BP 138/75; PULSE 51; RESP 14; O2SAT 96
== END 2019-07-01 05:00 | disposition home or self-care (01) ==
LOC: ED 03:52
PROVIDERS: Emergency Provider Emergency Medicine; PCP Internal Medicine
DX: G43.909 Migraine, unspecified, not intractable, without status migrainosus (principal)
CPT/HCPCS: 36415; 70450; 80048; 85025; 96361; 96374; 96375; 99284; J1885; J2765